=== PATIENT | male | born 1970 | race Caucasian/White ===

== ENCOUNTER 2019-06-25 20:25 | Emergency (ER) | payer BC ==
[~2019-06-25] VITALS: Ht 172.7 cm; Wt 72.6 kg
[2019-06-25 20:27] VITALS: BP_SYST 129
--- NOTE | 2019-06-25 22:00 | NUR ---
Called pt name in the WR to place in ER bed,unable to locate.
--- NOTE | 2019-06-25 22:05 | NUR ---
Called pt name in the WR to place in ER bed,unable to locate.
--- NOTE | 2019-06-25 22:15 | NUR ---
Called pt name in the WR to place in ER bed,unable to locate.
== END 2019-06-25 22:15 | disposition left against medical advice (07) ==
LOC: SED 20:25
DX: R07.89 Other chest pain (principal); Z53.21 Procedure and treatment not carried out due to patient leaving prior to being seen by health care provider

== ENCOUNTER 2021-02-24 22:58 | Emergency (ER) | payer BC ==
[~2021-02-24] VITALS: Ht 172.7 cm; Wt 65.8 kg
[2021-02-24 23:00] VITALS: BP_SYST 130
[2021-02-24] MEDS ORDERED: ASPIRIN 81 MG TAB.CHEW PO ONE (23:30)
[2021-02-24] MEDS ORDERED: NITROGLYCERIN 250 ML IV ONE (23:30)
[2021-02-24 23:47] LABS: BASOPHILS # (AUTO) 0.1 K/uL (0.0-0.2); EOSINOPHILS # (AUTO) 0.2 K/uL (0.0-0.4); EOSINOPHILS % (AUTO) 3.5 % (0.0-4.0); HEMATOCRIT 44.3 % (36-54); HEMOGLOBIN 15.2 g/dL (14.0-18.0); LYMPHOCYTES # (AUTO) 2.7 K/uL (1.0-5.5); LYMPHOCYTES % (AUTO) 43.8 % (20.5-51.5); MEAN CORPUSCULAR HEMOGLOBIN 29 pg (27-31); MEAN CORPUSCULAR HGB CONC 34 % (32-36); MEAN CORPUSCULAR VOLUME 86 fL (79.0-98.0); MONOCYTES # (AUTO) 0.3 K/uL (0.0-1.0); MONOCYTES % (AUTO) 5.2 % (1.7-9.3); NEUTROPHILS # (AUTO) 2.9 K/uL (1.8-7.7); NEUTROPHILS % (AUTO) 46.5 % (40.0-70.0); PLATELET COUNT (AUTO) 261 K/uL (130-430); RED BLOOD CELL COUNT(AUTO) 5.16 MIL/uL (4.2-6.2); RED CELL DISTRIBUTION WIDTH 13.1 % (9.0-15.0); WHITE BLOOD COUNT (AUTO) 6.1 K/uL (4.8-10.8)
[2021-02-25 00:05] LABS: CREATININE 1.09 mg/dL (0.55-1.30); POTASSIUM 3.6 mmol/L (3.5-5.1)
[2021-02-25] MEDS ORDERED: ASPIRIN 81 MG TAB.CHEW ONE (00:07)
[2021-02-25 00:11] LABS: ALBUMIN 3.6 g/dL (3.4-4.8); TOTAL BILIRUBIN 0.5 mg/dL (0.0-1.0)
[2021-02-25 01:33] VITALS: BP_SYST 130
== END 2021-02-25 01:32 | disposition home or self-care (01) ==
LOC: SED 22:58
DX: R07.89 Other chest pain (principal); Z88.1 Allergy status to other antibiotic agents
CPT/HCPCS: 36415; 71045; 80053; 82550-TC; 83880; 84484; 85025; 93005; 99285